=== PATIENT | female | born 1980 | race Caucasian/White ===

== ENCOUNTER 2017-06-03 12:31 | Emergency (ER) | payer OTHER ==
--- NOTE | 2017-06-03 14:49 | DIAGNOSTIC IMAGING REPORT ---
PROCEDURE: CT ABD/PELVIS WITH CONTRAST CLINICAL INDICATION: ABDOMINAL PAIN TECHNIQUE: 125 ml of Isovue 300 were injected intravenously and axial images were obtained of the entire abdomen and pelvis with sagittal and coronal reformations. COMPARISON: None. FINDINGS: ABDOMEN: Pectus excavatum. Lung base are clear. Heart size is normal. Cholecystectomy with mild dilation of the intrahepatic ducts. Liver, pancreas, spleen, adrenal glands and left kidney are normal. Small right renal cyst. Normal abdominal aorta. Right lower quadrant small bowel anastomosis with focal dilation of the small bowel at the end of stenosis. PELVIS: 3 cm left ovarian cysts. Normal uterus and bladder. There is no free fluid or inflammatory changes. No suspicious osseous lesions. IMPRESSION: 1. Right lower quadrant small bowel list stenosis with focal dilation of bowel at the anastomosis 2. Cholecystectomy and appendectomy 3. 3 cm left ovarian cyst 4. Results discussed with Dr. Odonnell All CT scans at this facility use dose modulation, iterative reconstruction, and/or weight-based dosing when appropriate to reduce radiation dose to as low as reasonably achievable.
--- NOTE | 2017-06-03 15:58 | ED CLINICAL REPORT ---
Clinical Report - Physicians/Mid Levels [facility] [address] [place] [address] 06/03/2017 12:33 Patient: ESTEFANY MILLER Time Seen: 12:43; initial patient contact. Arrived- By private vehicle. Historian- patient. HISTORY OF PRESENT ILLNESS Chief Complaint: RECTAL BLEEDING. This started about 3 weeks ago, has been moderate and is still present (persistent). It was gradual in onset and has been intermittent. The patient has not had dark stools. She has had rectal bleeding and pain, constipation, hard stools and diarrhea. She has had abdominal pain. No nausea or vomiting. Similar symptoms previously: Many times. Recent medical care: Not recently seen/assessed. REVIEW OF SYSTEMS The patient has had dizziness. No fainting episodes, weakness, fever or chills. She has had chest pain. All systems otherwise negative, except as recorded above. PAST HISTORY Viral Disease. Headache. Thyroid Disease. Anxiety Reaction. Herpes. Blood clots. Raynaud's Phenomenon. Hemorrhoids(internal and external) SURGERIES: Abdominal surgery. Appendectomy. Blood clot surgeries (multiple). Cholecystectomy. IUD removal Hemorrhoidal banding. SOCIAL HISTORY Never smoker. No alcohol use or drug use. ADDITIONAL NOTES The nursing notes have been reviewed. PHYSICAL EXAM Vital Signs: 06/03/2017 12:39 BP: 109/74. HR: 89. RR: 17. O2 saturation: 100%. Temp: 98.5 F. Pain level now: 4/10. Have been reviewed as normal. Appearance: Alert. Oriented X3. No acute distress. Eyes: Eyes normal inspection. No pale conjunctivae. ENT: Pharynx normal. CVS: Normal heart rate and rhythm. Heart sounds normal. Respiratory: No respiratory distress. Breath sounds normal. Abdomen: Soft and nontender. Bowel sounds normal. No organomegaly. No mass. Rectal: Moderately tender digital exam. Inflamed and thrombosed external and internal hemorrhoids. No bleeding external hemorrhoids or ruptured external hemorrhoids. Stool color normal. Stool heme negative; hemoccult quality project manager check passed. (POC test reference range: negative). (Female MARK Macdonald P present for exam.). Skin: Skin warm and dry. Normal skin color. Neuro: Oriented X 3. LABS, X-RAYS, AND EKG Abdominal CT: 1. Right lower quadrant small bowel list stenosis with focal dilation of bowel at the anastomosis 2. Cholecystectomy and appendectomy 3. 3 cm left ovarian cyst. Study type: abdomen and pelvis. Abdominal CT performed with IV contrast. The study was independently viewed by me, interpreted by the radiologist and discussed with the radiologist. Laboratory Tests: CBC w Diff: (EH: 06/03/2017 12:50) ( [facility] 06/03/2017 13:07) Final results Test Result Flag Units (Reference) WHITE BLOOD COUNT 4.8 K/uL (4.5-11.5) RED BLOOD COUNT 3.60 L M/uL (4.00-5.20) HEMOGLOBIN 10.7 L gm/dL (12.0-16.0) HEMATOCRIT 31.0 L % (36.0-46.0) MEAN CELL VOLUME 86 fL (80-100) MEAN CORPUSCULAR HGB 30 pg (26-34) MEAN CORPUSCULAR HGB CONC 34 g/dL (31-37) RED CELL DISTRIBUTION WIDTH 13.7 % (11.6-14.8) PLATELET COUNT 212 K/uL (150-400) NEUTROPHIL % 62.2 % (50-75) LYMPH % 27.6 % (25-40) MONO % 9.0 % (3-14) EOSINOPHIL % 1.0 % (0-4) BASOPHIL % 0.2 % (0-2) PT with INR: (EH: 06/03/2017 12:50) ( [facility] 06/03/2017 13:12) Final results Test Result Flag Units (Reference) INR 1.0 (0.8-1.2) Low Intensity Therapy: INR 1.5-2.0 PT range 18.5-23.1Mod.Intensity Therapy: INR 2.0-3.0 PT range 23.1-31.5High Intensity Therapy: INR 2.5-3.5 PT range 27.4-35.5High Intensity Therapy 2: INR 3.0-4.0 PT range 31.5-39.3 APTT 30 SECONDS (24-34) . PROGRESS AND PROCEDURES Disposition: Discharged home in good and improved condition. Condition: good. CLINICAL IMPRESSION Prolapsed and thrombosed external and internal hemorrhoids. No bleeding hemorrhoids. Mild chronic anemia. INSTRUCTIONS Drink plenty of fluids. Your Current Medications: CONTINUE TAKING THE FOLLOWING MEDICATIONS: LORazepam Oral : 0.5 mg PRN. Omeprazole Oral : 40 mg 2x a day. Synthroid Oral : 175 mcg daily. Wellbutrin Oral. Prescription Medications: Zofran (orally disintegrating tablets) 4 mg: take 1 orally every 6 hours as needed for nausea and vomiting. Dispense ten (10). No refill. Substitution is permissible. Follow-up: Follow up with your doctor in about two days. Call for an appointment. Screening today revealed the patient's blood pressure to be in the normal range. (Electronically signed by Palomo Odonnell Dr. 06/03/2017 21:52)
--- NOTE | 2017-06-03 15:58 | ED ORDER SUMMARY ---
..... Patient: ESTEFANY MILLER OrderSheet [facility] VisitID: [id number] [place] [address] 36y, F Registration Date/Time: 06/03/2017 ORDER SHEET Weight: 67.1 kg (stated) Allergies: No Known Drug Allergy GENERAL ORDERS: Log Stacker Operator (Continuous) (12:56 06/03/2017 IJurca R.N. per protocol) (12:57 IJurca R.N.) CBC w Diff Urgent (12:56 06/03/2017 IJurca R.N. per protocol) (12:57 IJurca R.N.) CMP Urgent (12:56 06/03/2017 IJurca R.N. per protocol) (12:57 IJurca R.N.) UA-Culture if indicated Urgent (12:56 06/03/2017 IJurca R.N. per protocol) (12:57 IJurca R.N.) Pulse oximeter (12:56 06/03/2017 IJurca R.N. per protocol) (12:57 IJurca R.N.) PT with INR Urgent (12:58 06/03/2017 Amy Contreras) (Ack 13:02 Gabriel ER Tech1) (13:02 Yamel R.N.) PTT Urgent (12:58 06/03/2017 Amy Contreras) (Ack 13:02 Gabriel ER Tech1) (13:02 Yamel R.N.) Urine Urgent (13:32 06/03/2017 Amy Contreras) (13:35 IJurca R.N.) CT Abd/Pel w Cont (No) (6/0.9) Urgent (13:57 06/03/2017 Amy Contreras) (Ack 13:59 Gabriel ER Tech1) (14:25 RFay) MEDICATION ORDERS: IV FLUIDS: IV Saline Lock (12:56 06/03/2017 IJurca R.N. per protocol) (12:57 IJurca R.N.) Zofran IV 4 mg (NOW) (15:31 06/03/2017 Amy Contreras) (15:44 Sonya Grider) ORDER SHEET NOTES: [Electronically signed by Palomo Odonnell Dr. (21:52 06/03/2017)] [Electronically signed by Yesenia Lee R.N. (:55 06/03/2017)] [Electronically locked/signed by Yesenia Lee R.N. (:55 06/03/2017)]
--- NOTE | 2017-06-03 15:58 | ED NURSING NOTES ---
Clinical Report - Nurses [facility] [address] [place] [address] 06/03/2017 12:33 Patient: ESTEFANY MILLER TRIAGE Triage time 12:39 Jun 03 2017. Chief Complaint: ABDOMINAL PAIN and RECTAL BLEEDING (pt with hx of hemorrhoids and banding, pt x 3 weeks has had inc in bleeding after bms, pt contacted SURGICAL SCRUB TECHNICIAN and was sent in for eval - per pt "what concerned me is I was having chest pain this weekend" denies cp now). Alert. No acute distress. SEPSIS SCREEN: Sepsis Screen. Negative (no infection suspected/documented). --12:46 Yesenia Lee R.N. 12:39 06/03/17. BP: 109/74. HR: 89. RR: 17. O2 saturation: 100%. Temp: 98.5 F. Pain level now: 03/03. --12:46 Yesenia Lee R.N. Weight: 67.1 kg stated. Height/Length: 59 inches Per Patient. BMI: 29.9. --12:44 Yesenia Lee R.N. Medications LORazepam Oral 0.5 mg, PRN. Omeprazole Oral 40 mg, 2x a day. Synthroid Oral 175 mcg, daily. Wellbutrin Oral. --12:42 Yesenia Lee R.N. Medication/allergy information source: the patient. --12:46 Yesenia Lee R.N. Allergies No Known Drug Allergy. --12:42 Yesenia Lee R.N. History Arrived by private vehicle. Historian: patient. Onset. (3 weeks). She has had abdominal pain (describes as "like menstrual cramps"). PAST MEDICAL HX: Peptic ulcer disease. Last normal menstrual period- doesn't have periods had ablation. SOCIAL HX: Never smoker. Occasional alcohol use. No drug use. No recent travel. No known contact with a sick individual. ABUSE ASSESSMENT: No report of abuse. SELF HARM ASSESSMENT: A self harm assessment was performed. The patient answered "no" to the question "Do you have thoughts of harming or killing yourself?". FALL RISK ASSESSMENT: Fall risk assessment completed. No fall risk identified. NUTRITIONAL RISK ASSESSMENT: The nutritional risk assessment revealed no deficiencies. FUNCTIONAL ASSESSMENT: Functional assessment: no impairments noted. LEARNING NEEDS ASSESSMENT: The learning needs assessment revealed no barriers. SKIN INTEGRITY ASSESSMENT: Skin integrity risk assessment completed. No skin integrity risk identified. --12:46 Yesenia Lee R.N. PROBLEMS: Viral Disease. Headache. Immunizations. LNMP - Last Normal Menstrual Period. Thyroid Disease. Anxiety Reaction. Herpes. Blood clots. Raynaud's Phenomenon. --12:43 Yesenia Lee R.N. ADDITIONAL SURGERIES: Abdominal surgery. Appendectomy. Blood clot surgeries (multiple). Cholecystectomy. IUD removal. --12:43 Yesenia Lee R.N. Interventions ID band on patient. --12:46 Yesenia Lee R.N. PHYSICAL ASSESSMENT Ambulatory to room. Patient gowned. GENERAL / NEURO / PSYCH: Alert. Oriented X 4. Appears in no acute distress. RESPIRATORY: Respirations not labored. CVS: Capillary refill less than 2 seconds. GI / : Abdomen soft and nontender. Bowel sounds within normal limits. SKIN: Skin is warm and dry. --12:47 Yesenia Lee R.N. NURSING PROGRESS NOTES Patient identifiers checked. Call light placed in reach. Side rails up x 1. Bed placed in lowest position. Brakes of bed on. Patient ready for evaluation- chart flagged. Patient waiting for evaluation. --12:47 Yesenia Lee R.N. 12:48 06/03/2017 Site #1 started via IV antecubital space with an 20g angiocath; one attempt. Blood drawn: rainbow set. Labeled in the presence of the patient and sent to the lab. Saline lock flushed with 10 mL saline. --12:48 Yesenia Lee R.N. Cardiac rhythm: (sr). certified surgical technician, pulse oximeter and NIBP monitor placed on patient; tool and die maker level five- Lead II and V5; monitor alarms on. --12:50 Yesenia Lee R.N. 13:57 06/03/17. BP: 103/53. HR: 82 (regular). RR: 17. O2 saturation: 100%. Pain level now: 03/03. --13:59 Yesenia Lee R.N. Call light placed in reach. Side rails up x 1. Bed placed in lowest position. Brakes of bed on. ( pt updated on lab results, in poc, waiting MD further poc). --13:59 Yesenia Lee R.N. Hemoccult test negative. quality control representative check passed. (POC test reference range: negative). --14:00 Yesenia Lee R.N. Patient waiting for CT results. ( pt ambulatory to bathroom, updated on waiting for CT results, pt remains in SR on monitor, no ectopy noted,). --14:38 Yesenia Lee R.N. 15:44 06/03/2017 Zofran (Ondansetron HCl) IVP 4 mg given. via site #1. Allergies verified and confirmed 5 rights. IV patency established. IV site checked: no pain, redness, or swelling. IV flushed thoroughly pre- and post-medication administration. IVP given by RN. --15:44 Yesenia Lee R.N. ( pt reported nausea after CT with- pt given zofran ivp. ctm). --15:44 Yesenia Lee R.N. 16:01 06/03/2017 Zofran IVP Response: no adverse reaction symptoms have improved the patient feels better. --16:11 Yesenia Lee R.N. DISPOSITION / DISCHARGE 16:06 06/03/2017 Site #1 removed upon discharge. Bandaid applied. --16:11 Yesenia Lee R.N. No learning barriers present. Discharge instructions provided and reviewed with the patient. Reviewed medication(s) side effects and dosing information. Prescription(s) given to the patient. Patient verbalized understanding. Written instructions provided in Kazakh. The patient was discharged by the physician. She was discharged home. She left the Emergency Department ambulatory and via private vehicle. --16:12 Yesenia Lee R.N. 16:10 06/03/17. BP: 111/68. HR: 74. RR: 17. O2 saturation: 100%. Temp: deferred. Pain level now: 03/03. --16:12 Yesenia Lee R.N. Locked/Released at 06/03/2017 21:55 by Yesenia Lee R.N.
--- NOTE | 2017-06-03 15:58 | ED CLINICAL REPORT ---
Clinical Report - Physicians/Mid Levels [facility] [address] [place] [address] 06/03/2017 12:33 Patient: ESTEFANY MILLER Time Seen: 12:43; initial patient contact. Arrived- By private vehicle. Historian- patient. HISTORY OF PRESENT ILLNESS Chief Complaint: RECTAL BLEEDING. This started about 3 weeks ago, has been moderate and is still present (persistent). It was gradual in onset and has been intermittent. The patient has not had dark stools. She has had rectal bleeding and pain, constipation, hard stools and diarrhea. She has had abdominal pain. No nausea or vomiting. Similar symptoms previously: Many times. Recent medical care: Not recently seen/assessed. REVIEW OF SYSTEMS The patient has had dizziness. No fainting episodes, weakness, fever or chills. She has had chest pain. All systems otherwise negative, except as recorded above. PAST HISTORY Viral Disease. Headache. Thyroid Disease. Anxiety Reaction. Herpes. Blood clots. Raynaud's Phenomenon. Hemorrhoids(internal and external) SURGERIES: Abdominal surgery. Appendectomy. Blood clot surgeries (multiple). Cholecystectomy. IUD removal Hemorrhoidal banding. SOCIAL HISTORY Never smoker. No alcohol use or drug use. ADDITIONAL NOTES The nursing notes have been reviewed. PHYSICAL EXAM Vital Signs: 06/03/2017 12:39 BP: 109/74. HR: 89. RR: 17. O2 saturation: 100%. Temp: 98.5 F. Pain level now: 4/10. Have been reviewed as normal. Appearance: Alert. Oriented X3. No acute distress. Eyes: Eyes normal inspection. No pale conjunctivae. ENT: Pharynx normal. CVS: Normal heart rate and rhythm. Heart sounds normal. Respiratory: No respiratory distress. Breath sounds normal. Abdomen: Soft and nontender. Bowel sounds normal. No organomegaly. No mass. Rectal: Moderately tender digital exam. Inflamed and thrombosed external and internal hemorrhoids. No bleeding external hemorrhoids or ruptured external hemorrhoids. Stool color normal. Stool heme negative; hemoccult quality head check passed. (POC test reference range: negative). (Female MARK Macdonald P present for exam.). Skin: Skin warm and dry. Normal skin color. Neuro: Oriented X 3. LABS, X-RAYS, AND EKG Abdominal CT: 1. Right lower quadrant small bowel list stenosis with focal dilation of bowel at the anastomosis 2. Cholecystectomy and appendectomy 3. 3 cm left ovarian cyst. Study type: abdomen and pelvis. Abdominal CT performed with IV contrast. The study was independently viewed by me, interpreted by the radiologist and discussed with the radiologist. Laboratory Tests: CBC w Diff: (EH: 06/03/2017 12:50) ( [facility] 06/03/2017 13:07) Final results Test Result Flag Units (Reference) WHITE BLOOD COUNT 4.8 K/uL (4.5-11.5) RED BLOOD COUNT 3.60 L M/uL (4.00-5.20) HEMOGLOBIN 10.7 L gm/dL (12.0-16.0) HEMATOCRIT 31.0 L % (36.0-46.0) MEAN CELL VOLUME 86 fL (80-100) MEAN CORPUSCULAR HGB 30 pg (26-34) MEAN CORPUSCULAR HGB CONC 34 g/dL (31-37) RED CELL DISTRIBUTION WIDTH 13.7 % (11.6-14.8) PLATELET COUNT 212 K/uL (150-400) NEUTROPHIL % 62.2 % (50-75) LYMPH % 27.6 % (25-40) MONO % 9.0 % (3-14) EOSINOPHIL % 1.0 % (0-4) BASOPHIL % 0.2 % (0-2) PT with INR: (EH: 06/03/2017 12:50) ( [facility] 06/03/2017 13:12) Final results Test Result Flag Units (Reference) INR 1.0 (0.8-1.2) Low Intensity Therapy: INR 1.5-2.0 PT range 18.5-23.1Mod.Intensity Therapy: INR 2.0-3.0 PT range 23.1-31.5High Intensity Therapy: INR 2.5-3.5 PT range 27.4-35.5High Intensity Therapy 2: INR 3.0-4.0 PT range 31.5-39.3 APTT 30 SECONDS (24-34) . PROGRESS AND PROCEDURES Disposition: Discharged home in good and improved condition. Condition: good. CLINICAL IMPRESSION Prolapsed and thrombosed external and internal hemorrhoids. No bleeding hemorrhoids. Mild chronic anemia. INSTRUCTIONS Drink plenty of fluids. Your Current Medications: CONTINUE TAKING THE FOLLOWING MEDICATIONS: LORazepam Oral : 0.5 mg PRN. Omeprazole Oral : 40 mg 2x a day. Synthroid Oral : 175 mcg daily. Wellbutrin Oral. Prescription Medications: Zofran (orally disintegrating tablets) 4 mg: take 1 orally every 6 hours as needed for nausea and vomiting. Dispense ten (10). No refill. Substitution is permissible. Follow-up: Follow up with your doctor in about two days. Call for an appointment. Screening today revealed the patient's blood pressure to be in the normal range. (Electronically signed by Palomo Odonnell Dr. 06/03/2017 21:52)
--- NOTE | 2017-06-03 15:58 | ED ORDER SUMMARY ---
..... Patient: ESTEFANY MILLER OrderSheet [facility] VisitID: [id number] [place] [address] 36y, F Registration Date/Time: 06/03/2017 ORDER SHEET Weight: 67.1 kg (stated) Allergies: No Known Drug Allergy GENERAL ORDERS: Wire Galvanizer (Continuous) (12:56 06/03/2017 IJurca R.N. per protocol) (12:57 IJurca R.N.) CBC w Diff Urgent (12:56 06/03/2017 IJurca R.N. per protocol) (12:57 IJurca R.N.) CMP Urgent (12:56 06/03/2017 IJurca R.N. per protocol) (12:57 IJurca R.N.) UA-Culture if indicated Urgent (12:56 06/03/2017 IJurca R.N. per protocol) (12:57 IJurca R.N.) Pulse oximeter (12:56 06/03/2017 IJurca R.N. per protocol) (12:57 IJurca R.N.) PT with INR Urgent (12:58 06/03/2017 Amy Contreras) (Ack 13:02 Gabrile ER Tech1) (13:02 Yamel R.N.) PTT Urgent (12:58 06/03/2017 Amy Contreras) (Ack 13:02 Gabriel ER Tech1) (13:02 Yamel R.N.) Urine Urgent (13:32 06/03/2017 Amy Contreras) (13:35 IJurca R.N.) CT Abd/Pel w Cont (No) (6/0.9) Urgent (13:57 06/03/2017 Amy Contreras) (Ack 13:59 Gabriel ER Tech1) (14:25 RFay) MEDICATION ORDERS: IV FLUIDS: IV Saline Lock (12:56 06/03/2017 IJurca R.N. per protocol) (12:57 IJurca R.N.) Zofran IV 4 mg (NOW) (15:31 06/03/2017 Amy Contreras) (15:44 Sonya Grider) ORDER SHEET NOTES: [Electronically signed by Palomo Odonnell Dr. (21:52 06/03/2017)] [Electronically signed by Yesenia Lee R.N. (:55 06/03/2017)] [Electronically locked/signed by Yesenia Lee R.N. (:55 06/03/2017)]
--- NOTE | 2017-06-03 15:58 | ED NURSING NOTES ---
Clinical Report - Nurses [facility] [address] [place] [address] 06/03/2017 12:33 Patient: ESTEFANY MILLER TRIAGE Triage time 12:39 Jun 03 2017. Chief Complaint: ABDOMINAL PAIN and RECTAL BLEEDING (pt with hx of hemorrhoids and banding, pt x 3 weeks has had inc in bleeding after bms, pt contacted [facility] and was sent in for eval - per pt "what concerned me is I was having chest pain this weekend" denies cp now). Alert. No acute distress. SEPSIS SCREEN: Sepsis Screen. Negative (no infection suspected/documented). --12:46 Yesenia Lee R.N. 12:39 06/03/17. BP: 109/74. HR: 89. RR: 17. O2 saturation: 100%. Temp: 98.5 F. Pain level now: 03/03. --12:46 Yesenia Lee R.N. Weight: 67.1 kg stated. Height/Length: 59 inches Per Patient. BMI: 29.9. --12:44 Yesenia Lee R.N. Medications LORazepam Oral 0.5 mg, PRN. Omeprazole Oral 40 mg, 2x a day. Synthroid Oral 175 mcg, daily. Wellbutrin Oral. --12:42 Yesenia Lee R.N. Medication/allergy information source: the patient. --12:46 Yesenia Lee R.N. Allergies No Known Drug Allergy. --12:42 Yesenia Lee R.N. History Arrived by private vehicle. Historian: patient. Onset. (3 weeks). She has had abdominal pain (describes as "like menstrual cramps"). PAST MEDICAL HX: Peptic ulcer disease. Last normal menstrual period- doesn't have periods had ablation. SOCIAL HX: Never smoker. Occasional alcohol use. No drug use. No recent travel. No known contact with a sick individual. ABUSE ASSESSMENT: No report of abuse. SELF HARM ASSESSMENT: A self harm assessment was performed. The patient answered "no" to the question "Do you have thoughts of harming or killing yourself?". FALL RISK ASSESSMENT: Fall risk assessment completed. No fall risk identified. NUTRITIONAL RISK ASSESSMENT: The nutritional risk assessment revealed no deficiencies. FUNCTIONAL ASSESSMENT: Functional assessment: no impairments noted. LEARNING NEEDS ASSESSMENT: The learning needs assessment revealed no barriers. SKIN INTEGRITY ASSESSMENT: Skin integrity risk assessment completed. No skin integrity risk identified. --12:46 Yesenia Lee R.N. PROBLEMS: Viral Disease. Headache. Immunizations. LNMP - Last Normal Menstrual Period. Thyroid Disease. Anxiety Reaction. Herpes. Blood clots. Raynaud's Phenomenon. --12:43 Yesenia Lee R.N. ADDITIONAL SURGERIES: Abdominal surgery. Appendectomy. Blood clot surgeries (multiple). Cholecystectomy. IUD removal. --12:43 Yesenia Lee R.N. Interventions ID band on patient. --12:46 Yesenia Lee R.N. PHYSICAL ASSESSMENT Ambulatory to room. Patient gowned. GENERAL / NEURO / PSYCH: Alert. Oriented X 4. Appears in no acute distress. RESPIRATORY: Respirations not labored. CVS: Capillary refill less than 2 seconds. GI / : Abdomen soft and nontender. Bowel sounds within normal limits. SKIN: Skin is warm and dry. --12:47 Yesenia Lee R.N. NURSING PROGRESS NOTES Patient identifiers checked. Call light placed in reach. Side rails up x 1. Bed placed in lowest position. Brakes of bed on. Patient ready for evaluation- chart flagged. Patient waiting for evaluation. --12:47 Yesenia Lee R.N. 12:48 06/03/2017 Site #1 started via IV antecubital space with an 20g angiocath; one attempt. Blood drawn: rainbow set. Labeled in the presence of the patient and sent to the lab. Saline lock flushed with 10 mL saline. --12:48 Yesenia Lee R.N. Cardiac rhythm: (sr). awake overnight monitor, pulse oximeter and NIBP monitor placed on patient; awake overnight monitor- Lead II and V5; monitor alarms on. --12:50 Yesenia Lee R.N. 13:57 06/03/17. BP: 103/53. HR: 82 (regular). RR: 17. O2 saturation: 100%. Pain level now: 03/03. --13:59 Yesenia Lee R.N. Call light placed in reach. Side rails up x 1. Bed placed in lowest position. Brakes of bed on. ( pt updated on lab results, in poc, waiting MD further poc). --13:59 Yesenia Lee R.N. Hemoccult test negative. international controller check passed. (POC test reference range: negative). --14:00 Yesenia Lee R.N. Patient waiting for CT results. ( pt ambulatory to bathroom, updated on waiting for CT results, pt remains in SR on monitor, no ectopy noted,). --14:38 Yesenia Lee R.N. 15:44 06/03/2017 Zofran (Ondansetron HCl) IVP 4 mg given. via site #1. Allergies verified and confirmed 5 rights. IV patency established. IV site checked: no pain, redness, or swelling. IV flushed thoroughly pre- and post-medication administration. IVP given by RN. --15:44 Yesenia Lee R.N. ( pt reported nausea after CT with- pt given zofran ivp. ctm). --15:44 Yesenia Lee R.N. 16:01 06/03/2017 Zofran IVP Response: no adverse reaction symptoms have improved the patient feels better. --16:11 Yesenia Lee R.N. DISPOSITION / DISCHARGE 16:06 06/03/2017 Site #1 removed upon discharge. Bandaid applied. --16:11 Yesenia Lee R.N. No learning barriers present. Discharge instructions provided and reviewed with the patient. Reviewed medication(s) side effects and dosing information. Prescription(s) given to the patient. Patient verbalized understanding. Written instructions provided in Urdu. The patient was discharged by the physician. She was discharged home. She left the Emergency Department ambulatory and via private vehicle. --16:12 Yesenia Lee R.N. 16:10 06/03/17. BP: 111/68. HR: 74. RR: 17. O2 saturation: 100%. Temp: deferred. Pain level now: 03/03. --16:12 Yesenia Lee R.N. Locked/Released at 06/03/2017 21:55 by Yesenia Lee R.N.
--- NOTE | 2017-06-03 21:55 | ED MED RECONCILIATION SUMMARY ---
Patient: ESTEFANY MILLER Medication Reconciliation Report [facility] VisitID: [id number] [address] [place] [address] 36y, F Registration Date/Time: 06/03/2017 Weight: 67.1 kg Height/Length: 59 in. BMI: 29.9 ALLERGIES: No Known Drug Allergy The patient's Home Medications are listed below: CONTINUE TAKING THE FOLLOWING MEDICATIONS: LORazepam Oral 0.5 mg, PRN Omeprazole Oral 40 mg, 2x a day Synthroid Oral 175 mcg, daily Wellbutrin Oral The source(s) of the original Home Medication information: patient The following Medications were given to the patient in the Emergency Department: Zofran [IVP] IVP 4 mg, administered: 06/03/2017 3:44:00 PM The following Medications were prescribed to the patient: Zofran (orally disintegrating tablets) 4 mg: take 1 orally every 6 hours as needed for nausea and vomiting. Dispense ten (10). No refill. Substitution is permissible. -- Palomo Odonnell Dr.
--- NOTE | 2017-06-03 21:55 | ED MED RECONCILIATION SUMMARY ---
Patient: ESTEFANY MILLER Medication Reconciliation Report [facility] VisitID: [id number] [address] [place] [address] 36y, F Registration Date/Time: 06/03/2017 Weight: 67.1 kg Height/Length: 59 in. BMI: 29.9 ALLERGIES: No Known Drug Allergy The patient's Home Medications are listed below: CONTINUE TAKING THE FOLLOWING MEDICATIONS: LORazepam Oral 0.5 mg, PRN Omeprazole Oral 40 mg, 2x a day Synthroid Oral 175 mcg, daily Wellbutrin Oral The source(s) of the original Home Medication information: patient The following Medications were given to the patient in the Emergency Department: Zofran [IVP] IVP 4 mg, administered: 06/03/2017 3:44:00 PM The following Medications were prescribed to the patient: Zofran (orally disintegrating tablets) 4 mg: take 1 orally every 6 hours as needed for nausea and vomiting. Dispense ten (10). No refill. Substitution is permissible. -- Palomo Odonnell Dr.
--- NOTE | 2017-06-03 21:55 | ED MAR SUMMARY ---
..... Medication Administration Record [facility] [address] [place] [address] Patient: ESTEFANY MILLER Visit ID: [id number] 36y, F Weight: 67.1 kg Height/Length: 59 in BMI: 29.9 ALLERGIES: No Known Drug Allergy Given 15:44 06/03/2017 Yesenia Lee R.N. Medication Administered: ZOFRAN [IVP] (ONDANSETRON HCL), Dose: 4 mg IVP, Site: #1 . Medication Ordered: Zofran IV 4 mg (NOW).
--- NOTE | 2017-06-03 21:55 | ED MAR SUMMARY ---
..... Medication Administration Record [facility] [address] [place] [address] Patient: ESTEFANY MILLER Visit ID: [id number] 36y, F Weight: 67.1 kg Height/Length: 59 in BMI: 29.9 ALLERGIES: No Known Drug Allergy Given 15:44 06/03/2017 Yesenia Lee R.N. Medication Administered: ZOFRAN [IVP] (ONDANSETRON HCL), Dose: 4 mg IVP, Site: #1 . Medication Ordered: Zofran IV 4 mg (NOW).
--- NOTE | 2017-06-03 21:55 | ED DISCHARGE INSTRUCTIONS ---
Patient: ESTEFANY MILLER General Instructions [facility] VisitID: [id number] [place] [address] 36y, F Registration Date/Time: 06/03/2017 Prolapsed and thrombosed external and internal hemorrhoids. No bleeding hemorrhoids. Mild chronic anemia. INSTRUCTIONS Drink plenty of fluids. Your Current Medications: CONTINUE TAKING THE FOLLOWING MEDICATIONS: LORazepam Oral : 0.5 mg PRN. Omeprazole Oral : 40 mg 2x a day. Synthroid Oral : 175 mcg daily. Wellbutrin Oral. Prescription Medications: Zofran (orally disintegrating tablets) 4 mg: take 1 orally every 6 hours as needed for nausea and vomiting. Dispense ten (10). No refill. Substitution is permissible. Follow-up: Follow up with your doctor in about two days. Call for an appointment. Screening today revealed the patient's blood pressure to be in the normal range. ADDITIONAL INFORMATION Anemia [Type Not Specified, Adult] Red blood cells carry oxygen to the tissues of the body. Anemia is a condition where the size or number of red blood cells in the body is reduced. Iron is needed to make red blood cells. The most common cause of anemia is iron deficiency. This may be due to: i) Blood loss (heavy menstrual periods or bleeding from the stomach or intestines); or, ii) Not eating enough iron-containing foods. Other causes of anemia include certain vitamin deficiencies, chronic kidney disease or certain other chronic illnesses. Anemia causes a feeling of being tired and run down. When anemia becomes severe, the skin becomes pale and there is shortness of breath with exertion. Headaches, dizziness, leg cramps with exertion, drowsiness and fatigue are other common symptoms. Home Care: If you are having symptoms of anemia listed above: -- Do not overexert yourself. -- Talk to your doctor before flying on an airplane or traveling to high altitudes. Follow Up with your doctor as advised by our staff. Additional blood testing may be required to determine the exact cause of your anemia. If testing was done on this visit, it may take several days to get all of the results. You may call this facility or follow up with your own doctor to get the results. Get Prompt Medical Attention if any of the following occur: -- Shortness of breath or chest pain -- Worsening of dizziness, fainting -- Vomiting blood or passing red or black-colored stool Hemorrhoids,External A hemorrhoid is a local swelling of the veins around the rectum. These most often occur from repeated forceful straining during bowel movements or heavy lifting. It may also occur in the last few months of . A hemorrhoid feels like a soft lump. It may itch from time to time. When it is inflamed it becomes hard and very painful. Home Care: SITZ BATHS: Sit in a tub filled with about 6 inches of hot water. Allow the water to run in order to keep it hot for a total of 10-15 minutes. Repeat this three times a day until pain is relieved. Keep your stools soft to avoid the need to strain when having a bowel movement. Unless another medicine was prescribed, try the following: IF YOU ARE CONSTIPATED: You may use binn-vqi-vvbqumn laxatives such as MILK OF MAGNESIA (mild acting) or, DULCOLAX (if stronger action is needed). IF YOU ARE NOT CONSTIPATED but stools are hard, try taking Colace (docusate sodium) which is a stool softener. This will soften stools without producing diarrhea. Drinking extra fluids may also help. The use of creams applied to the hemorrhoid itself, such as ANUSOL or PREPARATION H, will be helpful to reduce pain and itching, and speed healing. Prevention: Avoid straining on the toilet by keeping stools soft. Increasing FIBER in your diet (fruits, cereals, vegetables and grains) will promote healthy bowel movement. If this is not working, you may use METAMUCIL and similar products. These are vgmq-qgv-rebbukh fiber supplements. You must drink extra fluids when taking these to avoid constipation. Follow Up with your doctor if you do not begin to respond to the above treatment within the next few days. Get Prompt Medical Attention if any of the following occur: Large amount of rectal bleeding (more than 1 cup of blood in 24 hours) Increasing rectal pain or rectal pain that continues for more than three days of treatment Weakness, dizziness or fainting Vomiting blood (red or black color) High Fiber Diet Fiber is present in all fruits, vegetables, cereals and grains. Fiber passes through the body undigested. A high fiber diet helps food move through the intestinal tract. The added bulk is helpful in preventing constipation. In people with diverticulosis it serves to clean out the pouches along the colon wall while preventing new ones from forming. A high fiber diet also reduces the risk of colon cancer, decreases blood cholesterol and prevents high blood sugar in people with diabetes. The foods listed below are high in fiber and should be included in your diet. If you are not used to high fiber foods, start with 1 or 2 foods from this list. Every 3-4 days add a new one to your diet until you are eating 4 high fiber foods per day. This should give you 20-35 Gm of fiber/day. It is also important to drink a lot of water when you are on this diet (6-8 glasses a day). Water causes the fiber to swell and increases the benefit. Foods High In Dietary Fiber: BREADS: Made with 100% whole wheat flour; latoya, wheat or rye crackers; tortillas, bran muffins CEREALS: Whole grain cereal with bran (Chex, Raisin Bran, [place] Bran), oatmeal, rolled oats, granola, wheat flakes, brown rice NUTS: Any nuts FRUITS: All fresh fruits along with edible skins, (bananas, citrus fruit, mangoes, pears, prunes, raisins, apples, pineapple, apricot, melon, jams and marmalades), fruit juices (especially prune juice) VEGETABLES: All types, preferably raw or lightly cooked: especially, celery, eggplant, potatoes,spinach, broccoli, brussel sprouts, winter squash, carrots, cauliflower, soybeans, lentils, fresh and dried beans of all kinds OTHER: Popcorn, any spices Ondansetron Oral disintegrating tablet What is this medicine? ONDANSETRON (on ARIANNE se erica) is used to treat nausea and vomiting caused by chemotherapy. It is also used to prevent or treat nausea and vomiting after surgery. How should I use this medicine? These tablets are made to dissolve in the mouth. Do not try to push the tablet through the foil backing. With dry hands, peel away the foil backing and gently remove the tablet. Place the tablet in the mouth and allow it to dissolve, then swallow. While you may take these tablets with water, it is not necessary to do so. Talk to your superintendent operating regarding the use of this medicine in children. Special care may be needed. What side effects may I notice from receiving this medicine? Side effects that you should report to your doctor or health career information specialist as soon as possible: allergic reactions like skin rash, itching or hives, swelling of the face, lips, or tongue breathing problems dizziness fast or irregular heartbeat feeling faint or lightheaded, falls fever and chills swelling of the hands and feet tightness in the chest Side effects that usually do not require medical attention (report to your doctor or health career information specialist if they continue or are bothersome): constipation or diarrhea headache What may interact with this medicine? Do not take this medicine with any of the following medications: -apomorphine -cisapride -dofetilide -dronedarone -pimozide -thioridazine -ziprasidone This medicine may also interact with the following medications: -carbamazepine -phenytoin -rifampicin -tramadol -other medicines that prolong the QT interval (cause an abnormal heart rhythm) What if I miss a dose? If you miss a dose, take it as soon as you can. If it is almost time for your next dose, take only that dose. Do not take double or extra doses. Where should I keep my medicine? Keep out of the reach of children. Store between 2 and 30 degrees C (36 and 86 degrees F). Throw away any unused medicine after the expiration date. What should I tell my health care provider before I take this medicine? They need to know if you have any of these conditions: heart disease history of irregular heartbeat liver disease low levels of magnesium or potassium in the blood an unusual or allergic reaction to ondansetron, granisetron, other medicines, foods, dyes, or preservatives or trying to get breast-feeding What should I watch for while using this medicine? Check with your doctor or health career information specialist as soon as you can if you have any sign of an allergic reaction. You have been given the following additional information: Anemia, Type Not Specified (Adult) Hemorrhoids Diet, High Fiber Ondansetron Oral disintegrating tablet (Electronically signed by Palomo Odonnell Dr. 06/03/2017 21:52)
--- NOTE | 2017-06-03 21:55 | ED DISCHARGE INSTRUCTIONS ---
Patient: ESTEFANY MILLER General Instructions [facility] VisitID: [id number] [place] [address] 36y, F Registration Date/Time: 06/03/2017 Prolapsed and thrombosed external and internal hemorrhoids. No bleeding hemorrhoids. Mild chronic anemia. INSTRUCTIONS Drink plenty of fluids. Your Current Medications: CONTINUE TAKING THE FOLLOWING MEDICATIONS: LORazepam Oral : 0.5 mg PRN. Omeprazole Oral : 40 mg 2x a day. Synthroid Oral : 175 mcg daily. Wellbutrin Oral. Prescription Medications: Zofran (orally disintegrating tablets) 4 mg: take 1 orally every 6 hours as needed for nausea and vomiting. Dispense ten (10). No refill. Substitution is permissible. Follow-up: Follow up with your doctor in about two days. Call for an appointment. Screening today revealed the patient's blood pressure to be in the normal range. ADDITIONAL INFORMATION Anemia [Type Not Specified, Adult] Red blood cells carry oxygen to the tissues of the body. Anemia is a condition where the size or number of red blood cells in the body is reduced. Iron is needed to make red blood cells. The most common cause of anemia is iron deficiency. This may be due to: i) Blood loss (heavy menstrual periods or bleeding from the stomach or intestines); or, ii) Not eating enough iron-containing foods. Other causes of anemia include certain vitamin deficiencies, chronic kidney disease or certain other chronic illnesses. Anemia causes a feeling of being tired and run down. When anemia becomes severe, the skin becomes pale and there is shortness of breath with exertion. Headaches, dizziness, leg cramps with exertion, drowsiness and fatigue are other common symptoms. Home Care: If you are having symptoms of anemia listed above: -- Do not overexert yourself. -- Talk to your doctor before flying on an airplane or traveling to high altitudes. Follow Up with your doctor as advised by our staff. Additional blood testing may be required to determine the exact cause of your anemia. If testing was done on this visit, it may take several days to get all of the results. You may call this facility or follow up with your own doctor to get the results. Get Prompt Medical Attention if any of the following occur: -- Shortness of breath or chest pain -- Worsening of dizziness, fainting -- Vomiting blood or passing red or black-colored stool Hemorrhoids,External A hemorrhoid is a local swelling of the veins around the rectum. These most often occur from repeated forceful straining during bowel movements or heavy lifting. It may also occur in the last few months of . A hemorrhoid feels like a soft lump. It may itch from time to time. When it is inflamed it becomes hard and very painful. Home Care: SITZ BATHS: Sit in a tub filled with about 6 inches of hot water. Allow the water to run in order to keep it hot for a total of 10-15 minutes. Repeat this three times a day until pain is relieved. Keep your stools soft to avoid the need to strain when having a bowel movement. Unless another medicine was prescribed, try the following: IF YOU ARE CONSTIPATED: You may use urmy-wof-zsrvqvy laxatives such as MILK OF MAGNESIA (mild acting) or, DULCOLAX (if stronger action is needed). IF YOU ARE NOT CONSTIPATED but stools are hard, try taking Colace (docusate sodium) which is a stool softener. This will soften stools without producing diarrhea. Drinking extra fluids may also help. The use of creams applied to the hemorrhoid itself, such as ANUSOL or PREPARATION H, will be helpful to reduce pain and itching, and speed healing. Prevention: Avoid straining on the toilet by keeping stools soft. Increasing FIBER in your diet (fruits, cereals, vegetables and grains) will promote healthy bowel movement. If this is not working, you may use METAMUCIL and similar products. These are ztqi-egc-dbzmpqi fiber supplements. You must drink extra fluids when taking these to avoid constipation. Follow Up with your doctor if you do not begin to respond to the above treatment within the next few days. Get Prompt Medical Attention if any of the following occur: Large amount of rectal bleeding (more than 1 cup of blood in 24 hours) Increasing rectal pain or rectal pain that continues for more than three days of treatment Weakness, dizziness or fainting Vomiting blood (red or black color) High Fiber Diet Fiber is present in all fruits, vegetables, cereals and grains. Fiber passes through the body undigested. A high fiber diet helps food move through the intestinal tract. The added bulk is helpful in preventing constipation. In people with diverticulosis it serves to clean out the pouches along the colon wall while preventing new ones from forming. A high fiber diet also reduces the risk of colon cancer, decreases blood cholesterol and prevents high blood sugar in people with diabetes. The foods listed below are high in fiber and should be included in your diet. If you are not used to high fiber foods, start with 1 or 2 foods from this list. Every 3-4 days add a new one to your diet until you are eating 4 high fiber foods per day. This should give you 20-35 Gm of fiber/day. It is also important to drink a lot of water when you are on this diet (6-8 glasses a day). Water causes the fiber to swell and increases the benefit. Foods High In Dietary Fiber: BREADS: Made with 100% whole wheat flour; latoya, wheat or rye crackers; tortillas, bran muffins CEREALS: Whole grain cereal with bran (Chex, Raisin Bran, [place] Bran), oatmeal, rolled oats, granola, wheat flakes, brown rice NUTS: Any nuts FRUITS: All fresh fruits along with edible skins, (bananas, citrus fruit, mangoes, pears, prunes, raisins, apples, pineapple, apricot, melon, jams and marmalades), fruit juices (especially prune juice) VEGETABLES: All types, preferably raw or lightly cooked: especially, celery, eggplant, potatoes,spinach, broccoli, brussel sprouts, winter squash, carrots, cauliflower, soybeans, lentils, fresh and dried beans of all kinds OTHER: Popcorn, any spices Ondansetron Oral disintegrating tablet What is this medicine? ONDANSETRON (on ARIANNE se erica) is used to treat nausea and vomiting caused by chemotherapy. It is also used to prevent or treat nausea and vomiting after surgery. How should I use this medicine? These tablets are made to dissolve in the mouth. Do not try to push the tablet through the foil backing. With dry hands, peel away the foil backing and gently remove the tablet. Place the tablet in the mouth and allow it to dissolve, then swallow. While you may take these tablets with water, it is not necessary to do so. Talk to your chili pepper grinder regarding the use of this medicine in children. Special care may be needed. What side effects may I notice from receiving this medicine? Side effects that you should report to your doctor or health family day care worker as soon as possible: allergic reactions like skin rash, itching or hives, swelling of the face, lips, or tongue breathing problems dizziness fast or irregular heartbeat feeling faint or lightheaded, falls fever and chills swelling of the hands and feet tightness in the chest Side effects that usually do not require medical attention (report to your doctor or health family day care worker if they continue or are bothersome): constipation or diarrhea headache What may interact with this medicine? Do not take this medicine with any of the following medications: -apomorphine -cisapride -dofetilide -dronedarone -pimozide -thioridazine -ziprasidone This medicine may also interact with the following medications: -carbamazepine -phenytoin -rifampicin -tramadol -other medicines that prolong the QT interval (cause an abnormal heart rhythm) What if I miss a dose? If you miss a dose, take it as soon as you can. If it is almost time for your next dose, take only that dose. Do not take double or extra doses. Where should I keep my medicine? Keep out of the reach of children. Store between 2 and 30 degrees C (36 and 86 degrees F). Throw away any unused medicine after the expiration date. What should I tell my health care provider before I take this medicine? They need to know if you have any of these conditions: heart disease history of irregular heartbeat liver disease low levels of magnesium or potassium in the blood an unusual or allergic reaction to ondansetron, granisetron, other medicines, foods, dyes, or preservatives or trying to get breast-feeding What should I watch for while using this medicine? Check with your doctor or health family day care worker as soon as you can if you have any sign of an allergic reaction. You have been given the following additional information: Anemia, Type Not Specified (Adult) Hemorrhoids Diet, High Fiber Ondansetron Oral disintegrating tablet (Electronically signed by Palomo Odonnell Dr. 06/03/2017 21:52)
== END 2017-06-03 16:04 | disposition home or self-care (01) ==
LOC: ED SRH 12:31
DX: K64.5 Perianal venous thrombosis (principal); K64.8 Other hemorrhoids; D50.0 Iron deficiency anemia secondary to blood loss (chronic); E07.9 Disorder of thyroid, unspecified; Z79.899 Other long term (current) drug therapy; I73.00 Raynaud's syndrome without gangrene
CPT/HCPCS: 90004; 90100; 93070; 94001; 94060; 95059